=== PATIENT | male | born 1990 | race Two or more races ===

== ENCOUNTER → 2020-02-16 | Outpatient (CLI) | payer OTHER ==
[~2020-02-16] VITALS: Ht 182.9 cm; Wt 130.6 kg
== END | disposition home or self-care (01) ==
LOC: ECT 11:42
DX: F33.2 Major depressive disorder, recurrent severe without psychotic features (principal); F41.9 Anxiety disorder, unspecified; F43.10 Post-traumatic stress disorder, unspecified; X58.XXXA Exposure to other specified factors, initial encounter; Y92.9 Unspecified place or not applicable; I10 Essential (primary) hypertension; E55.9 Vitamin D deficiency, unspecified; G40.909 Epilepsy, unspecified, not intractable, without status epilepticus; Z79.899 Other long term (current) drug therapy; Z81.8 Family history of other mental and behavioral disorders

== ENCOUNTER 2020-02-20 07:47 | Outpatient (RCR) | payer OTHER ==
[~2020-02-20] VITALS: Ht 182.9 cm; Wt 130.6 kg
[2020-02-23] VITALS (8 sets, daily range): BP systolic 101–125; BP diastolic 50–90
[2020-02-23] MEDS ORDERED: Ketorolac 30mg Inj ONE (06:00)
[2020-02-23] MEDS ORDERED: Succinylcholine 20mg/ml 10ml vial ONE (06:00)
[2020-02-23] MEDS ORDERED: NS 500ML ONE (06:00)
[2020-02-23] MEDS ORDERED: Methohexita Syr 100mg/10ml IVP ONE (06:00)
[2020-02-23] MEDS ORDERED: Atropine Sulfate 0.4mg/ml inj IVP PRN (11:44)
[2020-02-25] VITALS (7 sets, daily range): BP systolic 94–131; BP diastolic 54–79
[2020-02-25] MEDS ORDERED: Succinylcholine 20mg/ml 10ml vial ONE (06:00)
[2020-02-25] MEDS ORDERED: SUMAtriptan 6mg/0.5ml Inj SUBQ ONE (06:00)
[2020-02-25] MEDS ORDERED: Methohexita Syr 100mg/10ml IVP ONE (06:00)
[2020-02-25] MEDS ORDERED: NS 500ML ONE (06:00)
[2020-02-25] MEDS ORDERED: Atropine Sulfate 0.4mg/ml inj IVP PRN (10:24)
[2020-02-27] VITALS (7 sets, daily range): BP systolic 107–141; BP diastolic 41–90
[2020-02-27] MEDS ORDERED: Ketorolac 60mg Inj IM ONE (07:00)
[2020-02-27] MEDS ORDERED: Methohexita Syr 100mg/10ml IVP ONE ×2 (07:00→09:00)
[2020-02-27] MEDS ORDERED: SUMAtriptan 6mg/0.5ml Inj SUBQ ONE ×2 (07:00→09:00)
[2020-02-27] MEDS ORDERED: NS 500ML ONE ×2 (07:00→09:00)
[2020-02-27] MEDS ORDERED: Succinylcholine 20mg/ml 10ml vial ONE ×2 (07:00→09:00)
[2020-03-01] VITALS (7 sets, daily range): BP systolic 122–166; BP diastolic 55–97
[2020-03-01] MEDS ORDERED: SUMAtriptan 6mg/0.5ml Inj SUBQ ONE (09:00)
[2020-03-01] MEDS ORDERED: Ketorolac 60mg Inj IM ONE (09:00)
[2020-03-01] MEDS ORDERED: NS 500ML ONE (09:00)
[2020-03-01] MEDS ORDERED: Methohexita Syr 100mg/10ml IVP ONE (09:00)
[2020-03-01] MEDS ORDERED: Succinylcholine 20mg/ml 10ml vial ONE (09:00)
[2020-03-01] MEDS ORDERED: Atropine Sulfate 0.4mg/ml inj IVP PRN (09:24)
[2020-03-03] VITALS (7 sets, daily range): BP systolic 105–136; BP diastolic 53–72
[2020-03-03] MEDS ORDERED: Ketorolac 60mg Inj IM ONE (06:00)
[2020-03-03] MEDS ORDERED: SUMAtriptan 6mg/0.5ml Inj SUBQ ONE (06:00)
[2020-03-03] MEDS ORDERED: NS 500ML ONE (06:00)
[2020-03-03] MEDS ORDERED: Methohexita Syr 100mg/10ml IVP ONE (06:00)
[2020-03-03] MEDS ORDERED: Succinylcholine 20mg/ml 10ml vial ONE (06:00)
== END 2020-03-03 | disposition home or self-care (01) ==
LOC: ECT 07:47
DX: F33.2 Major depressive disorder, recurrent severe without psychotic features (principal); F41.9 Anxiety disorder, unspecified; F43.10 Post-traumatic stress disorder, unspecified; X58.XXXA Exposure to other specified factors, initial encounter; I10 Essential (primary) hypertension; E55.9 Vitamin D deficiency, unspecified; G43.909 Migraine, unspecified, not intractable, without status migrainosus
CPT/HCPCS: 90870; J0330; J1885; J3030; J7040

== ENCOUNTER 2020-03-05 06:49 | Outpatient (RCR) | payer OTHER ==
[2020-03-05] VITALS (7 sets, daily range): BP systolic 101–132; BP diastolic 40–76
[~2020-03-05] VITALS: Ht 182.9 cm; Wt 130.6 kg
[2020-03-05] MEDS ORDERED: Midazolam 2mg/2ml Inj ONE (06:50)
[2020-03-05] MEDS ORDERED: Methohexital Sodium Syr 100mg/10ml IVP ONE ×3 (06:50)
[2020-03-05] MEDS ORDERED: SUMAtriptan 6mg/0.5ml Inj SUBQ ONE ×3 (06:50)
[2020-03-05] MEDS ORDERED: Succinylcholine 20mg/ml 10ml vial ONE ×3 (06:50)
[2020-03-05] MEDS ORDERED: NS 500ML ONE ×3 (06:50)
[2020-03-05] MEDS ORDERED: Ketorolac 60mg Inj IM ONE ×3 (06:50)
[2020-03-08] VITALS (7 sets, daily range): BP systolic 109–154; BP diastolic 52–87
[2020-03-08] MEDS ORDERED: Atropine Sulfate 0.4mg/ml inj IVP PRN (08:34)
[2020-03-10] VITALS (7 sets, daily range): BP systolic 107–145; BP diastolic 45–96
[2020-03-10] MEDS ORDERED: NS 500ML ONE (06:00)
[2020-03-10] MEDS ORDERED: Methohexital Sodium Syr 100mg/10ml IVP ONE (06:00)
[2020-03-10] MEDS ORDERED: Ketorolac 60mg Inj IM ONE (06:00)
[2020-03-10] MEDS ORDERED: SUMAtriptan 6mg/0.5ml Inj SUBQ ONE (06:00)
[2020-03-10] MEDS ORDERED: Succinylcholine 20mg/ml 10ml vial ONE (06:00)
[2020-03-10] MEDS ORDERED: Atropine Sulfate 0.4mg/ml inj IVP PRN (10:39)
[2020-03-12] VITALS (7 sets, daily range): BP systolic 107–136; BP diastolic 41–77
[2020-03-12] MEDS ORDERED: Ketorolac 30mg Inj ONE (06:00)
[2020-03-12] MEDS ORDERED: NS 500ML ONE (06:00)
[2020-03-12] MEDS ORDERED: SUMAtriptan 6mg/0.5ml Inj SUBQ ONE (06:00)
[2020-03-12] MEDS ORDERED: Succinylcholine 20mg/ml 10ml vial ONE (06:00)
[2020-03-12] MEDS ORDERED: Methohexital Sodium Syr 100mg/10ml IVP ONE (06:00)
[2020-03-15] MEDS ORDERED: Ketorolac 60mg Inj IM ONE (06:00)
[2020-03-15] MEDS ORDERED: SUMAtriptan 6mg/0.5ml Inj SUBQ ONE (06:00)
[2020-03-15] MEDS ORDERED: Succinylcholine 20mg/ml 10ml vial ONE (06:00)
[2020-03-15] MEDS ORDERED: NS 500ML ONE (06:00)
[2020-03-15] MEDS ORDERED: Methohexital Sodium Syr 100mg/10ml IVP ONE (06:00)
[2020-03-15 09:55] VITALS: BP 129/71
[2020-03-15 10:00] VITALS: BP 109/78
[2020-03-15 10:05] VITALS: BP 140/80
[2020-03-15 10:10] VITALS: BP 118/72
[2020-03-15 10:15] VITALS: BP 118/74
[2020-03-15 10:20] VITALS: BP 108/50
[2020-03-17] VITALS (7 sets, daily range): BP systolic 101–122; BP diastolic 35–68
[2020-03-17] MEDS ORDERED: Ketorolac 60mg Inj IM ONE (07:00)
[2020-03-17] MEDS ORDERED: Methohexital Sodium Syr 100mg/10ml IVP ONE (07:00)
[2020-03-17] MEDS ORDERED: SUMAtriptan 6mg/0.5ml Inj SUBQ ONE (07:00)
[2020-03-17] MEDS ORDERED: Succinylcholine 20mg/ml 10ml vial ONE (07:00)
[2020-03-17] MEDS ORDERED: NS 500ML ONE (07:00)
[2020-03-19] VITALS (7 sets, daily range): BP systolic 110–149; BP diastolic 52–87
[2020-03-19] MEDS ORDERED: Ketorolac 60mg Inj IM ONE (09:00)
[2020-03-19] MEDS ORDERED: NS 500ML ONE (09:00)
[2020-03-19] MEDS ORDERED: Succinylcholine 20mg/ml 10ml vial ONE (09:00)
[2020-03-19] MEDS ORDERED: SUMAtriptan 6mg/0.5ml Inj SUBQ ONE (09:00)
[2020-03-19] MEDS ORDERED: Methohexital Sodium Syr 100mg/10ml IVP ONE (09:00)
[2020-03-24] VITALS (7 sets, daily range): BP systolic 112–139; BP diastolic 57–69
[2020-03-24] MEDS ORDERED: Methohexital Sodium Syr 100mg/10ml IVP ONE (09:00)
[2020-03-24] MEDS ORDERED: NS 500ML ONE (09:00)
[2020-03-24] MEDS ORDERED: Ketorolac 60mg Inj IM ONE (09:00)
[2020-03-24] MEDS ORDERED: Succinylcholine 20mg/ml 10ml vial ONE (09:00)
[2020-03-24] MEDS ORDERED: SUMAtriptan 6mg/0.5ml Inj SUBQ ONE (09:00)
[2020-03-31] VITALS (7 sets, daily range): BP systolic 101–124; BP diastolic 46–72
[2020-03-31] MEDS ORDERED: NS 500ML ONE (07:00)
[2020-03-31] MEDS ORDERED: SUMAtriptan 6mg/0.5ml Inj SUBQ ONE (07:00)
[2020-03-31] MEDS ORDERED: Succinylcholine 20mg/ml 10ml vial ONE (07:00)
[2020-03-31] MEDS ORDERED: Methohexital Sodium Syr 100mg/10ml IVP ONE (07:00)
[2020-03-31] MEDS ORDERED: Ketorolac 60mg Inj IM ONE (07:00)
[2020-03-31] MEDS ORDERED: Atropine Sulfate 0.4mg/ml inj IVP PRN (11:04)
== END 2020-04-03 | disposition home or self-care (01) ==
LOC: ECT 06:49
DX: F33.2 Major depressive disorder, recurrent severe without psychotic features (principal)
CPT/HCPCS: 90870; J0330; J1885; J2250; J3030; J7040

== ENCOUNTER 2020-04-14 06:45 | Outpatient (RCR) | payer OTHER ==
[~2020-04-14] VITALS: Ht 182.9 cm; Wt 130.6 kg
[2020-04-14] VITALS (7 sets, daily range): BP systolic 110–131; BP diastolic 44–69
[~2020-04-14 06:45] MED LIST: Ketorolac 30mg Inj ONE; Methohexita Syr 100mg/10ml IVP ONE; NS 500ML ONE; SUMAtriptan 6mg/0.5ml Inj SUBQ ONE; Succinylcholine 20mg/ml 10ml vial ONE
[2020-04-14] MEDS ORDERED: Atropine Sulfate 0.4mg/ml inj IVP PRN (10:29)
[2020-04-28] VITALS (7 sets, daily range): BP systolic 108–134; BP diastolic 52–68
[2020-04-28] MEDS ORDERED: Methohexita Syr 100mg/10ml IVP ONE (06:00)
[2020-04-28] MEDS ORDERED: SUMAtriptan 6mg/0.5ml Inj SUBQ ONE (06:00)
[2020-04-28] MEDS ORDERED: NS 500ML ONE (06:00)
[2020-04-28] MEDS ORDERED: Ketorolac 60mg Inj IM ONE (06:00)
[2020-04-28] MEDS ORDERED: Succinylcholine 20mg/ml 10ml vial ONE (06:00)
[2020-04-28] MEDS ORDERED: Atropine Sulfate 0.4mg/ml inj IVP PRN (10:14)
== END 2020-05-03 | disposition home or self-care (01) ==
LOC: ECT 06:45
DX: F33.2 Major depressive disorder, recurrent severe without psychotic features (principal)
CPT/HCPCS: 90870; J0330; J1885; J2405; J3030; J7040

== ENCOUNTER 2020-05-19 04:48 | Outpatient (RCR) | payer OTHER ==
[~2020-05-19] VITALS: Ht 182.9 cm; Wt 130.6 kg
[2020-05-21] VITALS (7 sets, daily range): BP systolic 135–158; BP diastolic 65–111
[2020-05-21] MEDS ORDERED: NS 500ML ONE (06:00)
[2020-05-21] MEDS ORDERED: Methohexita Syr 100mg/10ml IVP ONE (06:00)
[2020-05-21] MEDS ORDERED: Succinylcholine 20mg/ml 10ml vial ONE (06:00)
[2020-05-21] MEDS ORDERED: SUMAtriptan 6mg/0.5ml Inj SUBQ ONE (06:00)
[2020-05-21] MEDS ORDERED: Ketorolac 30mg Inj ONE (06:00)
== END 2020-06-03 | disposition home or self-care (01) ==
LOC: ECT 04:48
DX: F33.2 Major depressive disorder, recurrent severe without psychotic features (principal)
CPT/HCPCS: 90870; J0330; J1885; J3030; J7040

== ENCOUNTER 2020-06-25 05:28 | Outpatient (RCR) | payer OTHER ==
[2020-05-21 10:23] VITALS: BP 135/76
== END 2020-07-04 | disposition home or self-care (01) ==
LOC: ECT 05:28
DX: Z53.9 Procedure and treatment not carried out, unspecified reason (principal)

== ENCOUNTER 2020-07-09 05:48 | Outpatient (RCR) | payer OTHER ==
[2020-07-09] VITALS (7 sets, daily range): BP systolic 112–144; BP diastolic 53–74
[~2020-07-09] VITALS: Ht 182.9 cm; Wt 130.6 kg
[2020-07-09] MEDS ORDERED: Succinylcholine 20mg/ml 10ml vial ONE (05:49)
[2020-07-09] MEDS ORDERED: SUMAtriptan 6mg/0.5ml Inj SUBQ ONE (05:49)
[2020-07-09] MEDS ORDERED: Ketorolac 30mg Inj ONE (05:49)
[2020-07-09] MEDS ORDERED: Methohexita Syr 100mg/10ml IVP ONE (05:49)
[2020-07-09] MEDS ORDERED: NS 500ML ONE (05:49)
== END 2020-08-01 | disposition home or self-care (01) ==
LOC: ECT 05:48
DX: F33.2 Major depressive disorder, recurrent severe without psychotic features (principal)
CPT/HCPCS: 90870; J0330; J1885; J3030; J7040